=== PATIENT | female | born 1990 | race Caucasian/White ===

== ENCOUNTER 2017-09-30 12:32 | Emergency (ER) | payer OTHER ==
[2017-09-30] MEDS: diazePAM 5 MG TAB PO (13:10)
[2017-09-30] MEDS: KETOROLAC 60 MG/2 ML VIAL (J1885) IM (13:11)
== END 2017-09-30 13:45 | disposition home or self-care (01) ==
LOC: M ED 12:32
DX: S39.012A Strain of muscle, fascia and tendon of lower back, initial encounter (principal); X58.XXXA Exposure to other specified factors, initial encounter; Y92.89 Other specified places as the place of occurrence of the external cause; F17.200 Nicotine dependence, unspecified, uncomplicated
CPT/HCPCS: J1885

== ENCOUNTER 2020-01-23 17:17 | Emergency (ER) | payer OTHER ==
[~2020-01-23] VITALS: Ht 167.6 cm; Wt 87.0 kg
[~2020-01-23 17:17] MED LIST: ALPR2TAB3 PO; CYCL-707 PO; GABA-845 PO; IBUP-1022 PO; SING10TA32 PO; XYZA5TAB4 PO
[2020-01-23 17:18] VITALS: BP 128/58
[2020-01-23] MEDS ORDERED: ADV100INH INH (17:36)
[2020-01-23] MEDS ORDERED: LIDOCAINE 5% (LIDODERM) PATCH TD ONE (18:15)
[2020-01-23] MEDS ORDERED: KETOROLAC 60MG 2ML VIAL IM ONE (18:15)
[2020-01-23] MEDS ORDERED: methylPREDNISolone 125MG 2ML VIAL IM ONE (18:15)
[2020-01-23] MEDS ORDERED: **NOTE PATIENT COMMENT** MISC XX SCH (21:00)
== END 2020-01-23 18:38 | disposition home or self-care (01) ==
LOC: M ED 17:17
DX: M54.5 Low back pain (principal); G89.29 Other chronic pain; M79.605 Pain in left leg
CPT/HCPCS: 96372; 99282; J1885; J2930

== ENCOUNTER 2022-07-20 15:11 | Emergency (ER) | payer OTHER ==
[~2022-07-20] VITALS: Ht 167.6 cm; Wt 87.7 kg
[~2022-07-20 15:11] MED LIST changes: +ADV100INH INH; +GABA-283 PO; -GABA-845 PO; +MONT-5 PO; -SING10TA32 PO
[2022-07-20] MEDS ORDERED: PROC1CRE5 PR (19:09)
[2022-07-20 19:46] VITALS: BP 142/75
== END 2022-07-20 19:49 | disposition home or self-care (01) ==
LOC: M ED 15:11
DX: K64.9 Unspecified hemorrhoids (principal); M54.50 Low back pain, unspecified; F41.9 Anxiety disorder, unspecified; F32.A Depression, unspecified; F17.200 Nicotine dependence, unspecified, uncomplicated; F12.10 Cannabis abuse, uncomplicated; Z79.52 Long term (current) use of systemic steroids; Z79.02 Long term (current) use of antithrombotics/antiplatelets; Z79.899 Other long term (current) drug therapy

== ENCOUNTER 2023-12-24 13:21 | Emergency (ER) | payer OTHER ==
[~2023-12-24] VITALS: Ht 167.6 cm; Wt 91.7 kg
[~2023-12-24 13:21] MED LIST changes: -GABA-283 PO; +GABA-284 PO; +PROC1CRE5 PR
[2023-12-24] MEDS ORDERED: ASPI81CH33 PO (13:43)
[2023-12-24 14:11] LABS: BASO % 0.4 % (0.0-1.0); EOS # 0.1 10^3/uL (0.0-0.5); EOS % 1.3 % (0.0-3.0); HEMATOCRIT 41.2 % (36.0-47.0); HEMOGLOBIN 14.4 g/dl (12.0-15.5); LYMPH # 1.6 10^3/uL (1.5-5.0); LYMPH % 19.6 % (24.0-44.0); MEAN CORPUSCULAR HEMOGLOBIN 30.9 pg (27.0-33.0); MEAN CORPUSCULAR VOLUME 88.4 fl (80.0-96.0); MONO # 0.7 10^3/uL (0.0-0.8); MONO % 7.9 % (2.0-8.0); NEUTROPHILS # 5.9 10^3/uL (1.5-8.5); NEUTROPHILS % 70.4 % (36.0-66.0); PLATELET COUNT, AUTOMATED 290 10^3/uL (150-450); RED BLOOD COUNT 4.66 10^6/uL (4.00-5.40); WHITE BLOOD COUNT 8.3 10^3/uL (4.0-10.0)
[2023-12-24 14:41] LABS: BLOOD UREA NITROGEN 6 MG/DL (9-23); CALCIUM LEVEL 9.6 MG/DL (8.5-10.1); CARBON DIOXIDE LEVEL 24 MMOL/L (20-31); CHLORIDE LEVEL 107 MMOL/L (98-107); CREATININE FOR GFR 0.53 MG/DL (0.55-1.30); GLOMERULAR FILTRATION RATE > 60.0 (>60); GLUCOSE, FASTING 98 MG/DL (60-100); POTASSIUM SERUM 3.5 MMOL/L (3.5-5.1); SODIUM LEVEL 137 MMOL/L (136-145)
[2023-12-24 14:51] LABS: HCG, SERUM QUANTITATIVE 5224.6 MIU/ML (<4.2)
[2023-12-24] MEDS: ALBUTEROL SULFATE 2.5MG/0.5ML INH NEB SOLN NEB ONE ×2 (16:34→17:24)
[2023-12-24] MEDS: AZITHROMYCIN INJ 500 MG, VIAL MATE ADAPTER 1 EACH in NS 250 ML IV ONE (17:06)
[2023-12-24] MEDS: NS 1,000 ML IV ONE (17:06)
[2023-12-24 18:31] VITALS: BP 138/88; TEMP 98; O2SAT 99
[2023-12-24] MEDS ORDERED: ZITHTAB PO (18:37)
[2023-12-24] MEDS ORDERED: VENTAER INH (18:39)
== END 2023-12-24 18:45 | disposition home or self-care (01) ==
LOC: M ED 13:21
DX: A49.3 Mycoplasma infection, unspecified site (principal); B34.1 Enterovirus infection, unspecified; Z87.891 Personal history of nicotine dependence; Z79.51 Long term (current) use of inhaled steroids; Z79.1 Long term (current) use of non-steroidal anti-inflammatories (NSAID); Z79.2 Long term (current) use of antibiotics; Z79.899 Other long term (current) drug therapy
CPT/HCPCS: 76801; 76817; 80048; 81001; 84702; 85025; 86850; 86900; 86901; 87086; 87486; 87581; 87633; 87798; 93976; 94640; 96365; 96366; 99284; J0456